=== PATIENT | male | born 1940 ===

== ENCOUNTER 2024-01-27 05:53 | Day surgery (SDC) | payer OTHER ==
[2024-01-27] MEDS ORDERED: MIDAZOLAM HCL 2 MG/2 ML VIAL IV ONE (12:15)
[2024-01-27] MEDS ORDERED: DIPHENHYDRAMINE HCL 50 MG/ML VIAL 1ML IV ONE (12:15)
[2024-01-27] MEDS ORDERED: fentaNYL CITRATE 50 MCG/ML AMPUL IV PUSH ONE (12:15)
== END 2024-01-27 13:20 | disposition home or self-care (01) ==
LOC: AMB-ENDOS 05:53 → CIR.AMB 10:00 → AMB-ENDOS 13:20
PROVIDERS: ATTEND Colon & Rectal Surgery
DX: D12.3 Benign neoplasm of transverse colon (principal); K63.5 Polyp of colon; K57.30 Diverticulosis of large intestine without perforation or abscess without bleeding; Z86.0100 Personal history of colon polyps, unspecified